=== PATIENT | male | born 1960 | race Caucasian/White ===

== ENCOUNTER 2019-12-14 16:25 | Inpatient (IN) ==
[2019-12-14] MEDS ORDERED: LIDOCAINE/EPINEPH/TETRACAINE 1 EA SYR EXT STA (16:42)
[2019-12-14] MEDS ORDERED: levETIRAcetam 1,000 MG in 0.9 % SODIUM CHLORIDE 100 ML IV STA (16:42)
[2019-12-14] MEDS ORDERED: SODIUM CHLORIDE 0.9% 1000ML 1,000 ML IV SCH (16:45)
[2019-12-14 16:52] LABS: Basophils # (auto) 0.06 K/uL (0-0.2); Basophils % (auto) 0.8 %; Eosinophils # (auto) 0.23 K/uL (0-0.5); Eosinophils % (auto) 2.9 %; Hematocrit (blood only) 44.8 % (42-52); Lymphocytes # (auto) 1.97 K/uL (1.2-3.4); Mean Corpuscular Hgb Conc 33.5 g/dL (32-36); Mean Corpuscular Volume 80.7 fL (80-100); Mean Platelet Volume 10.9 fL (7.4-10.4); Monocytes # (auto) 0.46 K/uL (0.11-0.59); Monocytes % (auto) 5.8 %; Neutrophils # (auto) 5.17 K/uL (1.4-6.5); Neutrophils % (auto) 65.5 %; Platelet Count 272 K/uL (130-400); RDW Coefficient of Variation 13.8 % (11.5-14.5); RDW Standard Deviation 40.5 fL (36.4-46.3); Red Blood Count 5.55 M/uL (4.7-6.1); White Blood Count 7.89 K/uL (4.8-10.8)
--- NOTE | 2019-12-14 16:53 | Emergency Department Note ---
Impression & Plan Generalized seizure, CHI (closed head injury), Laceration of eyebrow, right, Contusion of nose, Abrasion of face, Concussion ED Provider Note INFORMANT: Patient ED PROVIDER(S): Shiraz Goldberg MD CHIEF COMPLAINT: Seizure PLAN: Disposition: Admitted Condition: Good MEDICAL DECISION MAKING: Patient presented to the emergency department after a seizure. He had a obvious head injury. The patient underwent CT imaging of the head, facial bones and cervical spine which was negative. His cervical collar was discontinued. The patient had an unremarkable CBC and chemistry panel. The laceration was treated with let gel and repaired by Gael Apodaca PA-C, please see her note. The patient was treated with IV Keppra. He was hydrated. He was given oral Tylenol. He was observed and was still exhibiting some signs of confusion but that seemed to clear and he was answering questions more appropriately. I did discuss the case with Dr. Carlson of neurology who recommended twice daily 750 mg of Keppra. The patient was reassessed. 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 She noted that he was still not back to his normal baseline even though he was more alert and answering questions more appropriately. He has clear signs of a significant concussion. He has obvious significant external trauma. Thankfully he has no intracranial bleeding or fractures. The patient does live alone. Given his seizure and symptomatic concussion the patient and I discussed admission to the hospital for monitoring and he agreed. [facility]o [facility] Patient was evaluated in the ER for further management. Triage Nursing notes reviewed and agree them. Additional history obtained from patient's shuttle preparation supervisor Vital Signs: reviewed and remarkable for no significant abnormalities Differential diagnosis: Epilepsy, infection, hypoglycemia, electrolyte abnormalities, cardiac sources, intracerebral event, trauma, toxicologic, neurologic, syncope, as well as other pathologies. Diagnostics interpreted by me: ECG:.Rate: 70 Rhythm:Normal sinus [place]:Normal QRS:Normal ST segements:No elevation or depression Other:No PACs or PVCs Cardiac Monitoring: Cardiac monitoring ordered by me: The patient was placed on continuous cardiac monitoring and observed. It revealed a normal sinus rhythm at 68 beats per minute without ectopy or evidence of dysrhythmia. Imaging studies: CT scan of the head, cervical spine and facial bones was negative for intracranial pathology. No cervical injury noted. No facial bone fracture. There is soft tissue injury noted. I refer to the EMR for further details [facility] HPI: The patient is a 59 year old male who presents to the Emergency Room with complaints of seizure and head injury. This started over an hour ago and seizure action of it he has stopped. The patient was working at [employer] and apparently had a seizure. This was generalized. He did strike his face on the ground and suffered abrasions to the face and a Laceration to the right eyebrow with associated headache. He was placed in a cervical collar. The patient also notes the following associated symptoms, none. The patient has been given no medication for relieving factors. Current pain is rated as 2/10. Patient denies history of seizures however record review indicated that there was a previous Keppra prescription. Pt denies fevers, chills, diaphoresis, visual changes, neck pain, chest pain, breathing difficulties, nausea, vomiting, abdominal pain, back pain, melena, hematochezia, urinary symptoms, numbness, weakness, lymphadenopathy, rash, or other complaints. ROS: See above HPI for pertinent positives & negatives. A total of 10 systems reviewed and were otherwise negative. PAST MEDICAL HISTORY:See Below, seizure PAST SURGICAL HISTORY:See Below, FAMILY HISTORY:See Below SOCIAL HISTORY:See Below, employed at [employer] HOME MEDICATIONS:See Below ALLERGIES:See Below VITALS:See Below PHYSICAL EXAMINATION: GENERAL: Awake, tired-appearing, in no distress HENT: Normocephalic, abrasions to the face with a laceration to the right eyebrow. Oropharynx unremarkable. EYES: Normal conjunctiva. Sclera non-icteric. PERRLA. EOMI. NECK: Inspection normal. Non-tender. Cervical collar in place. No masses. RESPIRATORY: Clear to auscultation. No wheezes. No rales. Normal respiratory effort. CARDIAC: Normal rate. Normal rhythm. No murmurs. No rubs. Extremities warm and well perfused. Pulses equal. No JVD. GI: Soft, non-distended. No tenderness to palpation. No rebound or guarding. No masses. RECTAL: Deferred. MUSCULOSKELETAL: Atraumatic. Chest examination reveals no tenderness. The back is symmetrical on inspection without obvious abnormality. There is no CVA tenderness to palpation. No joint edema. LOWER EXTREMITIES: Calves are equal size bilaterally and non-tender. No edema. No discoloration. NEURO: Relatively normal sensorium except the patient is answering questions repetitively with the same answer. No sensory or motor deficits noted. SKIN: No rash or jaundice noted. Shiraz Goldberg MD Past Med/Surg History Social History Smoking Status: Never smoker Feels Safe at Home: Yes Allergies Allergies Allergy/AdvReac Type Severity Reaction Status Date / Time No Known Allergies Allergy Verified 12/14/19 17:07 Home Meds Home Medications Medication Instructions Recorded Confirmed levetiracetam 1,000 mg PO QPM 12/14/19 12/14/19 Results & Data (ED) Vital Signs Vital Signs - 24 hr 12/14/19 16:33 12/14/19 18:35 12/14/19 20:00 Temperature 36.7 C Temperature Source Oral Pulse Rate 110 H Pulse Rate [Left Finger] 70 73 Pulse Rhythm [Left Finger] Pulse Strength [Left Finger] Respiratory Rate 18 24 18 Respiratory Effort / Characteristics Non-Labored Spontaneous Normal for Patient Respiratory Depth Normal Blood Pressure 152/84 H Blood Pressure [Right Arm] 158/98 H 134/80 Blood Pressure Mean 106 Blood Pressure Mean [Right Arm] 118 98 Blood Pressure Position Lying Blood Pressure Position [Right Arm] Lying Pulse Oximetry 97 98 98 Oxygen Delivery Method Room Air Sepsis Recent Fever Within 48 Hours No Sepsis New/Unexplained Change in Mental Status No Sepsis Action Taken by Nursing No Action Required 12/14/19 21:35 12/14/19 22:55 12/14/19 23:34 Temperature Temperature Source Pulse Rate 68 Pulse Rate [Left Finger] 91 H 67 Pulse Rhythm [Left Finger] Regular Pulse Strength [Left Finger] Normal Respiratory Rate 18 18 18 Respiratory Effort / Characteristics Normal for Patient Normal for Patient Respiratory Depth Blood Pressure 118/71 Blood Pressure [Right Arm] 191/108 H 145/76 H Blood Pressure Mean Blood Pressure Mean [Right Arm] 135 99 Blood Pressure Position Blood Pressure Position [Right Arm] Lying Sitting Pulse Oximetry 100 97 97 Oxygen Delivery Method Room Air Room Air Room Air Sepsis Recent Fever Within 48 Hours Sepsis New/Unexplained Change in Mental Status Sepsis Action Taken by Nursing Laboratory Data Result diagrams: 12/14/19 16:20 12/14/19 16:20 Lab Results 10/26/20 10/26/20 10/26/20 Range/Units 16:20 16:20 16:20 WBC 7.89 (4.8-10.8) K/uL RBC 5.55 (4.7-6.1) M/uL Hgb 15.0 (14.0-18.0) g/dL Hct 44.8 (42-52) % MCV 80.7 (80-100) fL MCH 27.0 (25-34) pg MCHC 33.5 (32-36) g/dL RDW Std Deviation 40.5 (36.4-46.3) fL RDW Coeff of Ruben 13.8 (11.5-14.5) % Plt Count 272 (130-400) K/uL MPV 10.9 H (7.4-10.4) fL Immature Gran % (Auto) 0.0 % Neut % (Auto) 65.5 % Lymph % (Auto) 25.0 % [place] % (Auto) 5.8 % Eos % (Auto) 2.9 % Baso % (Auto) 0.8 % Neut # (Auto) 5.17 (1.4-6.5) K/uL Lymph # (Auto) 1.97 (1.2-3.4) K/uL [place] # (Auto) 0.46 (0.11-0.59) K/uL Eos # (Auto) 0.23 (0-0.5) K/uL Baso # (Auto) 0.06 (0-0.2) K/uL Immature Gran # (Auto) 0.00 (0.00-0.02) K/uL Sodium 138 (136-145) mmol/L Potassium 3.6 (3.5-5.1) mmol/L Chloride 102 (98-107) mmol/L Carbon Dioxide 21 (21-32) mmol/L Anion Gap 15.0 H (3-11) BUN 15 (7-18) mg/dl Creatinine 1.22 (0.6-1.4) mg/dl Est Cr Clr Drug Dosing 74.0 ml/min Est GFR ( Amer) 75.8 Est GFR (Non-Af Amer) 65.4 BUN/Creatinine Ratio 12.4 (10-20) Glucose 83 (70-99) mg/dl Calcium 9.1 (8.5-10.1) mg/dl Phosphorus 3.1 (2.5-4.9) mg/dl Magnesium 2.4 (1.8-2.4) mg/dl Total Bilirubin 0.4 (0.2-1) mg/dl AST 19 (15-37) U/L ALT 30 (12-78) U/L Alkaline Phosphatase 100 (45-117) U/L Total Creatine Kinase 215 (39-308) U/L Total Protein 7.9 (6.4-8.2) gm/dl Albumin 3.9 (3.4-5.0) gm/dl Globulin 4.0 (2.5-4.0) gm/dl Albumin/Globulin Ratio 1.0 (0.9-2) TSH 8.450 H (0.300-4.500) uIu/ml Urine Color Urine Appearance (Clear) Urine pH (4.5-7.5) Ur Specific [place] (1.000-1.030) Urine Protein (Negative) Urine Glucose (UA) (Negative) Urine Ketones (Negative) Urine Blood (Negative) Urine Nitrite (Negative) Urine Bilirubin (Negative) Urine Urobilinogen (Negative) Ur Leukocyte Esterase (Negative) 12/14/19 Range/Units 18:41 WBC (4.8-10.8) K/uL RBC (4.7-6.1) M/uL Hgb (14.0-18.0) g/dL Hct (42-52) % MCV (80-100) fL MCH (25-34) pg MCHC (32-36) g/dL RDW Std Deviation (36.4-46.3) fL RDW Coeff of Ruben (11.5-14.5) % Plt Count (130-400) K/uL MPV (7.4-10.4) fL Immature Gran % (Auto) % Neut % (Auto) % Lymph % (Auto) % [place] % (Auto) % Eos % (Auto) % Baso % (Auto) % Neut # (Auto) (1.4-6.5) K/uL Lymph # (Auto) (1.2-3.4) K/uL [place] # (Auto) (0.11-0.59) K/uL Eos # (Auto) (0-0.5) K/uL Baso # (Auto) (0-0.2) K/uL Immature Gran # (Auto) (0.00-0.02) K/uL Sodium (136-145) mmol/L Potassium (3.5-5.1) mmol/L Chloride (98-107) mmol/L Carbon Dioxide (21-32) mmol/L Anion Gap (3-11) BUN (7-18) mg/dl Creatinine (0.6-1.4) mg/dl Est Cr Clr Drug Dosing ml/min Est GFR ( Amer) Est GFR (Non-Af Amer) BUN/Creatinine Ratio (10-20) Glucose (70-99) mg/dl Calcium (8.5-10.1) mg/dl Phosphorus (2.5-4.9) mg/dl Magnesium (1.8-2.4) mg/dl Total Bilirubin (0.2-1) mg/dl AST (15-37) U/L ALT (12-78) U/L Alkaline Phosphatase (45-117) U/L Total Creatine Kinase (39-308) U/L Total Protein (6.4-8.2) gm/dl Albumin (3.4-5.0) gm/dl Globulin (2.5-4.0) gm/dl Albumin/Globulin Ratio (0.9-2) TSH (0.300-4.500) uIu/ml Urine Color Yellow Urine Appearance Clear (Clear) Urine pH 5.0 (4.5-7.5) Ur Specific [place] 1.012 (1.000-1.030) Urine Protein Negative (Negative) Urine Glucose (UA) Negative (Negative) Urine Ketones Negative (Negative) Urine Blood Negative (Negative) Urine Nitrite Negative (Negative) Urine Bilirubin Negative (Negative) Urine Urobilinogen Negative (Negative) Ur Leukocyte Esterase Negative (Negative) Administered Medications Discontinued Medications Acetaminophen (Acetaminophen 500 Mg Tab) 1,000 mg PO NOW STA Stop: 12/14/19 20:14 Last Admin: 12/14/19 20:24 Dose: 1,000 mg Documented by: [id number] Sodium Chloride (Nss 1000ml) 1,000 mls @ 999 mls/hr IV .Q1H1M NEGRO Stop: 12/14/19 17:45 Last Infusion: 12/14/19 18:15 Dose: 0 mls/hr Documented by: [id number] Admin: 12/14/19 17:14 Dose: 999 mls/hr Documented by: [id number] Levetiracetam 1,000 mg/ Sodium (Chloride) 100 mls @ 440 mls/hr IV NOW STA Stop: 12/14/19 16:55 Last Infusion: 12/14/19 18:15 Dose: 0 mls/hr Documented by: [id number] Admin: 12/14/19 17:58 Dose: 440 mls/hr Documented by: [id number] Ketorolac Tromethamine (Ketorolac Tromethamine 15 Mg/Ml Vial) 15 mg IV NOW STA Stop: 12/14/19 21:34 Last Admin: 12/14/19 21:50 Dose: Not Given Documented by: [id number] Lidocaine (Lidocaine/Epineph/Tetracaine 1 Ea Syr) 1 ea EXT NOW STA Stop: 12/14/19 16:43 Last Admin: 12/14/19 17:10 Dose: 1 ea Documented by: [id number] Lisinopril (Lisinopril 2.5 Mg Tab) 2.5 mg PO ONE STA Stop: 12/14/19 22:12 Last Admin: 12/14/19 22:54 Dose: 2.5 mg Documented by: [id number] Discharge Plan Visit Data Chief Complaint: Seizure Stated Complaint: seizure ED Provider: Shiraz Goldberg Discharge Problem: Generalized seizure, CHI (closed head injury), Laceration of eyebrow, right, Contusion of nose, Abrasion of face, Concussion Patient Disposition: Admitted As Inpatient Discharge Instructions Interventions: ED Discharge Assessment Last Done: 12/14/19 23:34 Forms Stand Alone Forms: [email or web address] Prescriptions Prescriptions: No Action levetiracetam 1,000 mg tablet 1,000 mg PO QPM RF: 0 Referrals Referrals: Duke Hernandez MD [Primary Care Provider] -
[2019-12-14 17:10] LABS: Albumin Level 3.9 gm/dl (3.4-5.0); BUN Creatinine Ratio 12.4 (10-20); Calcium 9.1 mg/dl (8.5-10.1); Est GFR (African American) 75.8; Est GFR (Non-African American) 65.4; Magnesium 2.4 mg/dl (1.8-2.4); Potassium 3.6 mmol/L (3.5-5.1)
--- NOTE | 2019-12-14 17:11 | CT Scan Report ---
CT head/brain wo con CLINICAL HISTORY: 59 years-old Male with seizure, CHI. Acute head injury with seizure TECHNIQUE: Multiple axial CT images of the head were obtained without contrast. A dose lowering tech nique was utilized adhering to the principles of ALARA. COMPARISON: CT maxillofacial same day, head CT 03/06/2012 FINDINGS: No acute intracranial hemorrhage, midline shift, intracranial mass, hydrocephalus, territorial ischem ia or abnormal extra-axial collection. Mild age-related involutional changes. Study is mildly motion degraded. Encephalomalacia of the left temporal lobe redemonstrated. Study is mildly motion degraded. Cerebral vascular calcifications. Serpiginous vessels noted within the extra-axial distribution kody cent to the right frontal lobe. Imaged, lateral to the right orbit, 4.5 x 1.5 cm. The calvarium is in tact. The paranasal sinuses, mastoid air cells, and middle ear cavities are clear. IMPRESSION: 1. No acute intracranial abnormality or calvarial fracture. 2. Soft tissue hematoma lateral to the right orbit, 4.5 x 1.5 cm. 3. 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 ACT 112: Negative or not required by law. The above report was generated using voice recognition software. It may contain grammatical, syntax o r spelling errors. Electronically signed by: Jose Ware M.D. 12/14/2019 5:10 PM
[2019-12-14 17:13] LABS: Bilirubin,Total 0.4 mg/dl (0.2-1); Phosphorus 3.1 mg/dl (2.5-4.9); Total Protein 7.9 gm/dl (6.4-8.2)
--- NOTE | 2019-12-14 17:29 | CT Scan Report ---
CT cervical spine wo con CT DOSE: 1083.13 mGy.cm CLINICAL HISTORY: 59 years-old Male with seizure. Acute neck trauma with seizure COMPARISON: CT cervical spine 10/19/2011 TECHNIQUE: Multiple axial CT images of the cervical spine were obtained without contrast. A dose low ering technique was utilized adhering to the principles of ALARA. FINDINGS: Moderate degeneration at C1-C2. Mild multilevel facet arthrosis and spondylitic spurring. No acute fr acture or subluxation. Mastoid air cells and middle ear cavities are clear. Mild multilevel foraminal narrowing is suggested. There is no prevertebral edema. Lung apices are clear without pneumothorax. IMPRESSION: No acute fracture or subluxation. ACT 112: Negative or not required by law. The above report was generated using voice recognition software. It may contain grammatical, syntax o r spelling errors. Electronically signed by: Jose Ware M.D. 12/14/2019 5:28 PM
--- NOTE | 2019-12-14 17:33 | CT Scan Report ---
CT facial bones wo con CLINICAL HISTORY: 59 years-old Male presenting with fall. Acute head, neck and face trauma status pos t fall COMPARISON STUDY: CT head and cervical spine studies of same day TECHNIQUE: High-resolution CT scan of the facial bones is performed. Images are reviewed in the axia l, sagittal, and coronal planes. IV contrast was not administered for this examination. A dose lower ing technique was utilized adhering to the principles of ALARA. CT DOSE: 620.05 mGy.cm FINDINGS: 4.5 x 1.5 cm soft tissue hematoma lateral to the right orbit. There are a few partially imaged puncta te radiodense foci noted along the skin surface of the left forehead, possibly reflective of calcific ations. Orbits and globes are unremarkable. Streak artifact from dental amalgam hardware. Unremarkabl e parotid glands. Mastoid air cells and middle ear cavities are clear. The zygomatic arches, maxillar y warner, pterygoid plates, imaged calvarium, nasal bone and mandible appear intact. No acute facial b one fracture identified. IMPRESSION: 1. No acute facial bone fracture. 2. Small to moderate hematoma lateral to the right orbit. ACT 112: Negative or not required by law. The above report was generated using voice recognition software. It may contain grammatical, syntax o r spelling errors. Electronically signed by: Jose Ware M.D. 12/14/2019 5:32 PM
[2019-12-14 18:57] LABS: Appearance Urine Clear (Clear); Bilirubin Urine Negative (Negative); Blood Urine Negative (Negative); Color Urine Yellow; Glucose Urine UA Negative (Negative); Ketones Urine Negative (Negative); Leukocyte Esterase Urine Negative (Negative); Nitrite Urine Negative (Negative); Protein Urine Negative (Negative); Specific Gravity Urine 1.012 (1.000-1.030); Urobilinogen Urine Negative (Negative)
--- NOTE | 2019-12-14 19:27 | Emergency Department Note ---
ED Visit Note EMERGENCY DEPARTMENT PROCEDURE NOTE: I was asked by Dr. Collier to repair the right lateral eyebrow wound of this 59-year-old male patient. Please refer to their dictation for the complete history, physical exam, and ED course. EMERGENCY DEPARTMENT COURSE: Let gel had been applied to the wound prior to my assessment of the patient. The patient's face was cleansed thoroughly with normal saline solution prior to procedure. The wound then was prepped with Betadine and draped with sterile towels. The 1 cm laceration was irrigated copiously using normal saline solution and direct pressure irrigation. The wound was repaired using numeral 2, 6-0 nylon sutures. Patient tolerated the procedure well. .
[2019-12-14] MEDS ORDERED: ACETAMINOPHEN 500 MG TAB PO STA (20:13)
[2019-12-14] MEDS ORDERED: KETOROLAC TROMETHAMINE 15 MG/ML VIAL IV STA (21:33)
[2019-12-14] MEDS ORDERED: lisinopril 2.5 MG TAB PO STA (22:11)
[2019-12-15] MEDS ORDERED: MoRPHine SULFATE 4 MG/ML 1 ML CARP\\VIAL IV PRN (00:24)
[2019-12-15] MEDS ORDERED: LORazepam 1 MG/2 ML VIAL IV PRN (00:24)
[2019-12-15] MEDS ORDERED: ACETAMINOPHEN 325 MG TAB PO PRN (00:24)
[2019-12-15] MEDS ORDERED: PROMETHAZINE HCL 12.5 MG in SODIUM CHLORIDE 0.9% 50 ML IV PRN (00:24)
[2019-12-15] MEDS ORDERED: LACTATED RINGER'S 1,000 ML IV ONE (00:45)
--- NOTE | 2019-12-15 05:43 | History & Physical Report ---
Date of Service December 14, 2019 LATE ENTRY Assessment & Plan (1) Breakthrough seizure: Possibly from suboptimal AED dosing regimen l Rule out brain tumor as precipitant HTN urgency secondary to illness Possibly chronic given LVH from 2013 2D echo history of PE status post Coumadin past tobacco/alcohol abuse OBS Medical telemetry Seizure precautions, Ativan as needed active seizure Brain MRI Re: Recurrent seizure Neurology consult Re: Breakthrough seizure (ER provider already in touch with Dr. Campos who recommends modified home Keppra dosing at 750 mg twice daily starting tomorrow a.m.) Initiate lisinopril if with persistent BP elevation DVT prophylaxis. SCDs RE right orbital hematoma Full code Text document was generated using [employer] voice recognition software. It may contain grammatical or spelling errors. Kindly contact undersigned for clarification of any documentation item in question. Admission and Anticipated Discharge Date Admission Date: December 14, 2019 History of Present Illness Patient Chief Complaint: Blacked out Primary Care Provider: Duke Hernandez MD History obtained from patient and records. Medical history significant for seizure disorder, history of PE status post Coumadin, past tobacco/alcohol abuse. Last confinement November 2012 for bilateral PE, unprovoked event. Patient Dilantin transitioned to Keppra for patient's seizure disorder due to potential drug interaction between former medication and Coumadin. 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 Patient hit the ground face down. Generalized tonic-clonic seizures witnessed by patient's coworker as per records. Patient brought to the ER for evaluation by EMS. Patient does not recall events from dizzy episode up until waking up in the ER. Patient complaining of painful right eye swelling without blurred vision. Patient denies chest pain, S OB, abdominal pain. Last seizure attack was about 6 or 7 years ago as per patient. Last outpatient [facility] neurology follow-up was in 2013. Patient claims to be compliant with home medications. Patient denies recent EtOH intake. IV Keppra administered at the ER. Patient still somewhat confused and slow to respond as per coworker as per ER provider. Medical History as above Surgical History : Appendectomy, shoulder surgery Family History : Cancer Personal/Social history : Past tobacco/alcohol abuse, [email or web address] employee Allergies Allergy/AdvReac Type Severity Reaction Status Date / Time No Known Allergies Allergy Verified 12/14/19 17:07 Home Medications Home Medications Medication Instructions Recorded Confirmed Type levetiracetam 1,000 mg PO QPM 12/14/19 12/14/19 History Past Med/Surg History Social History Smoking Status: Never smoker Hx Alcohol Use: No Hx Substance Use: No Preferred Language: Estonian Beliefs That Will Affect Care: None Current Living Situation: Alone Feels Safe at Home: Yes Assistive Devices: None Review of Systems Review of Systems: As per HPI, all 10 systems reviewed, all other ROS negative Physical Exam Physical Exam: GENERAL: Comfortable, no respiratory distress SKIN: Normal color, warm HEENT: Alopecia, right lateral orbital hematoma, no EOM entrapment, dry buccal mucosa, dried blood on the face NECK : Supple, no tenderness CHEST : CTA, no tenderness HEART : RRR, no obvious murmurs ABDOMEN: Some distention, nontender EXTREMITIES : No LE swelling/tenderness, no other conspicuous deformities noted NEUROLOGIC : Coherent, no facial asymmetry, no other gross focality Results & Data Results & Data ([facility]) Vital Signs (Past 12 Hours) Vital Signs Temp Pulse Pulse Resp BP BP BP 12/15/19 04:09 37.0 C 70 18 134/61 12/15/19 00:26 36.9 C 69 67 18 150/73 H 12/14/19 23:34 68 18 118/71 12/14/19 22:55 67 18 145/76 H 12/14/19 21:35 91 H 18 191/108 H 12/14/19 20:00 73 18 134/80 12/14/19 18:35 70 24 158/98 H Pulse Ox 12/15/19 04:09 94 12/15/19 00:26 97 12/14/19 23:34 97 12/14/19 22:55 97 12/14/19 21:35 100 12/14/19 20:00 98 12/14/19 18:35 98 Laboratory Results Laboratory Results WBC 7.89 K/uL (4.8-10.8) 12/14/19 16:20 RBC 5.55 M/uL (4.7-6.1) 12/14/19 16:20 Hgb 15.0 g/dL (14.0-18.0) 12/14/19 16:20 Hct 44.8 % (42-52) 12/14/19 16:20 MCV 80.7 fL (80-100) 12/14/19 16:20 MCH 27.0 pg (25-34) 12/14/19 16:20 MCHC 33.5 g/dL (32-36) 12/14/19 16:20 RDW Std Deviation 40.5 fL (36.4-46.3) 12/14/19 16:20 RDW Coeff of Ruben 13.8 % (11.5-14.5) 12/14/19 16:20 Plt Count 272 K/uL (130-400) 12/14/19 16:20 MPV 10.9 fL (7.4-10.4) H 12/14/19 16:20 Immature Gran % (Auto) 0.0 % 12/14/19 16:20 Neut % (Auto) 65.5 % 12/14/19 16:20 Lymph % (Auto) 25.0 % 12/14/19 16:20 [place] % (Auto) 5.8 % 12/14/19 16:20 Eos % (Auto) 2.9 % 12/14/19 16:20 Baso % (Auto) 0.8 % 12/14/19 16:20 Neut # (Auto) 5.17 K/uL (1.4-6.5) 12/14/19 16:20 Lymph # (Auto) 1.97 K/uL (1.2-3.4) 12/14/19 16:20 [place] # (Auto) 0.46 K/uL (0.11-0.59) 12/14/19 16:20 Eos # (Auto) 0.23 K/uL (0-0.5) 12/14/19 16:20 Baso # (Auto) 0.06 K/uL (0-0.2) 12/14/19 16:20 Immature Gran # (Auto) 0.00 K/uL (0.00-0.02) 12/14/19 16:20 Sodium 138 mmol/L (136-145) 12/14/19 16:20 Potassium 3.6 mmol/L (3.5-5.1) 12/14/19 16:20 Chloride 102 mmol/L (98-107) 12/14/19 16:20 Carbon Dioxide 21 mmol/L (21-32) 12/14/19 16:20 Anion Gap 15.0 (3-11) H 12/14/19 16:20 BUN 15 mg/dl (7-18) 12/14/19 16:20 Creatinine 1.22 mg/dl (0.6-1.4) 12/14/19 16:20 Est Cr Clr Drug Dosing 74.0 ml/min 12/14/19 16:20 Est GFR ( Amer) 75.8 12/14/19 16:20 Est GFR (Non-Af Amer) 65.4 12/14/19 16:20 BUN/Creatinine Ratio 12.4 (10-20) 12/14/19 16:20 Glucose 83 mg/dl (70-99) 12/14/19 16:20 Calcium 9.1 mg/dl (8.5-10.1) 12/14/19 16:20 Phosphorus 3.1 mg/dl (2.5-4.9) 12/14/19 16:20 Magnesium 2.4 mg/dl (1.8-2.4) 12/14/19 16:20 Total Bilirubin 0.4 mg/dl (0.2-1) 12/14/19 16:20 AST 19 U/L (15-37) 12/14/19 16:20 ALT 30 U/L (12-78) 12/14/19 16:20 Alkaline Phosphatase 100 U/L (45-117) 12/14/19 16:20 Total Creatine Kinase 215 U/L (39-308) 12/14/19 16:20 Total Protein 7.9 gm/dl (6.4-8.2) 12/14/19 16:20 Albumin 3.9 gm/dl (3.4-5.0) 12/14/19 16:20 Globulin 4.0 gm/dl (2.5-4.0) 12/14/19 16:20 Albumin/Globulin Ratio 1.0 (0.9-2) 12/14/19 16:20 TSH 8.450 uIu/ml (0.300-4.500) H 12/14/19 16:20 Urine Color Yellow 12/14/19 18:41 Urine Appearance Clear (Clear) 12/14/19 18:41 Urine pH 5.0 (4.5-7.5) 12/14/19 18:41 Ur Specific [place] 1.012 (1.000-1.030) 12/14/19 18:41 Urine Protein Negative (Negative) 12/14/19 18:41 Urine Glucose (UA) Negative (Negative) 12/14/19 18:41 Urine Ketones Negative (Negative) 12/14/19 18:41 Urine Blood Negative (Negative) 12/14/19 18:41 Urine Nitrite Negative (Negative) 12/14/19 18:41 Urine Bilirubin Negative (Negative) 12/14/19 18:41 Urine Urobilinogen Negative (Negative) 12/14/19 18:41 Ur Leukocyte Esterase Negative (Negative) 12/14/19 18:[address] head: 1. No acute intracranial abnormality or calvarial fracture. 2. Soft tissue hematoma lateral to the right orbit, 4.5 x 1.5 cm. 3. 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 Face CT: 1. No acute facial bone fracture. 2. Small to moderate hematoma lateral to the right orbit. Cervical spine CT: No acute fracture or subluxation. EKG as per my interpretation: Rate seventy, NSR, normal axis, no ischemia
[2019-12-15 06:28] LABS: Basophils # (auto) 0.03 K/uL (0-0.2); Basophils % (auto) 0.3 %; Eosinophils # (auto) 0.07 K/uL (0-0.5); Eosinophils % (auto) 0.7 %; Hematocrit (blood only) 43.5 % (42-52); Hemoglobin 14.2 g/dL (14.0-18.0); Immature Granulocytes # (auto) 0.01 K/uL (0.00-0.02); Immature Granulocytes % (auto) 0.1 %; Lymphocytes # (auto) 0.98 K/uL (1.2-3.4); Lymphocytes % (auto) 10.3 %; Mean Corpuscular Hemoglobin 26.3 pg (25-34); Mean Corpuscular Hgb Conc 32.6 g/dL (32-36); Mean Corpuscular Volume 80.6 fL (80-100); Mean Platelet Volume 10.8 fL (7.4-10.4); Monocytes # (auto) 0.57 K/uL (0.11-0.59); Neutrophils % (auto) 82.6 %; Platelet Count 226 K/uL (130-400); RDW Coefficient of Variation 14.1 % (11.5-14.5); RDW Standard Deviation 41.6 fL (36.4-46.3); White Blood Count 9.56 K/uL (4.8-10.8)
[2019-12-15 07:06] LABS: BUN Creatinine Ratio 12.2 (10-20); Calcium 8.2 mg/dl (8.5-10.1); Creatinine Clr Calc Pharmacy 86.6 ml/min; Est GFR (Non-African American) 93.2; Potassium 3.9 mmol/L (3.5-5.1)
[2019-12-15] MEDS: oxyCODONE HCL IR 5 MG TAB (IMMEDIATE RELEASE) PO PRN ×2 (07:25→15:09)
[2019-12-15] MEDS: levETIRAcetam 250 MG TAB PO SCH ×2 (07:25→20:32)
--- NOTE | 2019-12-15 09:15 | Hospitalist Progress Note ---
Date of Service December 15, 2019 Assessment & Plan (1) Breakthrough seizure: Possibly from suboptimal AED dosing regimen or possible noncompliance Rule out brain tumor as precipitant MRI obtained and unremarkable Admitted to medical telemetry Seizure precautions, Ativan as needed active seizure Neurology consult Re: Breakthrough seizure ER provider in touch with Dr. Campos who recommends modified home Keppra dosing at 750 mg twice daily starting this a.m Follow-up with neurology in 8 weeks HTN urgency secondary to illness Possibly chronic given LVH from 2012 2D echo Initiate lisinopril if with persistent BP elevation Current blood pressure well controlled, 124/66 History of PE status post Coumadin Past tobacco/alcohol abuse DVT prophylaxis. SCDs RE right orbital hematoma Full code Admission and Anticipated Discharge Date Admission Date: December 14, 2019 Subjective Patient is lying in bed, in no acute distress. Denies any fevers, chills, chest pain, shortness of breath. Denies any further loss of consciousness/seizure activity. He has significant ecchymosis over his right eye/eyelid. Difficulty opening eye however he is able to and denies any blurry vision. Review of Systems Review of Systems: All systems reviewed & are unremarkable except as noted in HPI & below Constitutional: no fever and no chills Respiratory: no cough and no dyspnea Cardiovascular: no chest pain and no palpitations Gastrointestinal: no abdominal pain, no nausea and no vomiting Neurologic: no seizure-like activity, no abnormal speech and no confusion Physical Exam Physical Exam: GENERAL: Middle-age male, lying in bed, comfortable, no respiratory distress HEENT: Alopecia, right lateral orbital ecchymosis /hematoma, no EOM entrapment NECK : Supple, no tenderness CHEST : CTA, no wheezing, rhonchi or crackles HEART : RRR, no obvious murmurs ABDOMEN: Some distention, nontender, nondistended, positive bowel sounds EXTREMITIES : No LE swelling/tenderness, moves extremities spontaneously SKIN: Normal color, warm NEUROLOGIC : Alert and oriented x3, no facial asymmetry, speech fluent, moves extremities spontaneously Results & Data Results & Data ([facility]) Vital Signs (Past 12 Hours) Vital Signs Temp Pulse Pulse Resp BP BP BP 12/15/19 08:00 64 12/15/19 07:00 37.1 C 63 18 122/61 12/15/19 04:09 37.0 C 70 18 134/61 12/15/19 00:26 36.9 C 69 67 18 150/73 H 12/14/19 23:34 68 18 118/71 12/14/19 22:55 67 18 145/76 H 12/14/19 21:35 91 H 18 191/108 H Pulse Ox 12/15/19 08:00 12/15/19 07:00 94 12/15/19 04:09 94 12/15/19 00:26 97 12/14/19 23:34 97 12/14/19 22:55 97 12/14/19 21:35 100 Laboratory Results 12/15/19 12/15/19 12/15/19 Range/Units 05:49 05:49 05:49 WBC 9.56 (4.8-10.8) K/uL RBC 5.40 (4.7-6.1) M/uL Hgb 14.2 (14.0-18.0) g/dL Hct 43.5 (42-52) % MCV 80.6 (80-100) fL MCH 26.3 (25-34) pg MCHC 32.6 (32-36) g/dL RDW Std Deviation 41.6 (36.4-46.3) fL RDW Coeff of Ruben 14.1 (11.5-14.5) % Plt Count 226 (130-400) K/uL MPV 10.8 H (7.4-10.4) fL Immature Gran % (Auto) 0.1 % Neut % (Auto) 82.6 % Lymph % (Auto) 10.3 % [place] % (Auto) 6.0 % Eos % (Auto) 0.7 % Baso % (Auto) 0.3 % Neut # (Auto) 7.90 H (1.4-6.5) K/uL Lymph # (Auto) 0.98 L (1.2-3.4) K/uL [place] # (Auto) 0.57 (0.11-0.59) K/uL Eos # (Auto) 0.07 (0-0.5) K/uL Baso # (Auto) 0.03 (0-0.2) K/uL Immature Gran # (Auto) 0.01 (0.00-0.02) K/uL Sodium 140 (136-145) mmol/L Potassium 3.9 (3.5-5.1) mmol/L Chloride 107 (98-107) mmol/L Carbon Dioxide 29 (21-32) mmol/L Anion Gap 4.0 (3-11) BUN 11 (7-18) mg/dl Creatinine 0.91 D (0.6-1.4) mg/dl Est Cr Clr Drug Dosing 86.6 ml/min Est GFR ( Amer) 108.0 Est GFR (Non-Af Amer) 93.2 BUN/Creatinine Ratio 12.2 (10-20) Glucose 106 H (70-99) mg/dl Calcium 8.2 L (8.5-10.1) mg/dl Phosphorus (2.5-4.9) mg/dl Magnesium (1.8-2.4) mg/dl Total Bilirubin (0.2-1) mg/dl AST (15-37) U/L ALT (12-78) U/L Alkaline Phosphatase (45-117) U/L Total Creatine Kinase (39-308) U/L Total Protein (6.4-8.2) gm/dl Albumin (3.4-5.0) gm/dl Globulin (2.5-4.0) gm/dl Albumin/Globulin Ratio (0.9-2) TSH (0.300-4.500) uIu/ml Urine Color Urine Appearance (Clear) Urine pH (4.5-7.5) Ur Specific [place] (1.000-1.030) Urine Protein (Negative) Urine Glucose (UA) (Negative) Urine Ketones (Negative) Urine Blood (Negative) Urine Nitrite (Negative) Urine Bilirubin (Negative) Urine Urobilinogen (Negative) Ur Leukocyte Esterase (Negative) Blood Type A Positive Antibody Screen NEGATIVE 12/14/19 12/14/19 12/14/19 Range/Units 18:41 16:20 16:20 WBC (4.8-10.8) K/uL RBC (4.7-6.1) M/uL Hgb (14.0-18.0) g/dL Hct (42-52) % MCV (80-100) fL MCH (25-34) pg MCHC (32-36) g/dL RDW Std Deviation (36.4-46.3) fL RDW Coeff of Ruben (11.5-14.5) % Plt Count (130-400) K/uL MPV (7.4-10.4) fL Immature Gran % (Auto) % Neut % (Auto) % Lymph % (Auto) % [place] % (Auto) % Eos % (Auto) % Baso % (Auto) % Neut # (Auto) (1.4-6.5) K/uL Lymph # (Auto) (1.2-3.4) K/uL [place] # (Auto) (0.11-0.59) K/uL Eos # (Auto) (0-0.5) K/uL Baso # (Auto) (0-0.2) K/uL Immature Gran # (Auto) (0.00-0.02) K/uL Sodium 138 (136-145) mmol/L Potassium 3.6 (3.5-5.1) mmol/L Chloride 102 (98-107) mmol/L Carbon Dioxide 21 (21-32) mmol/L Anion Gap 15.0 H (3-11) BUN 15 (7-18) mg/dl Creatinine 1.22 (0.6-1.4) mg/dl Est Cr Clr Drug Dosing 74.0 ml/min Est GFR ( Amer) 75.8 Est GFR (Non-Af Amer) 65.4 BUN/Creatinine Ratio 12.4 (10-20) Glucose 83 (70-99) mg/dl Calcium 9.1 (8.5-10.1) mg/dl Phosphorus 3.1 (2.5-4.9) mg/dl Magnesium 2.4 (1.8-2.4) mg/dl Total Bilirubin 0.4 (0.2-1) mg/dl AST 19 (15-37) U/L ALT 30 (12-78) U/L Alkaline Phosphatase 100 (45-117) U/L Total Creatine Kinase 215 (39-308) U/L Total Protein 7.9 (6.4-8.2) gm/dl Albumin 3.9 (3.4-5.0) gm/dl Globulin 4.0 (2.5-4.0) gm/dl Albumin/Globulin Ratio 1.0 (0.9-2) TSH 8.450 H (0.300-4.500) uIu/ml Urine Color Yellow Urine Appearance Clear (Clear) Urine pH 5.0 (4.5-7.5) Ur Specific [place] 1.012 (1.000-1.030) Urine Protein Negative (Negative) Urine Glucose (UA) Negative (Negative) Urine Ketones Negative (Negative) Urine Blood Negative (Negative) Urine Nitrite Negative (Negative) Urine Bilirubin Negative (Negative) Urine Urobilinogen Negative (Negative) Ur Leukocyte Esterase Negative (Negative) Blood Type Antibody Screen 12/14/19 Range/Units 16:20 WBC 7.89 (4.8-10.8) K/uL RBC 5.55 (4.7-6.1) M/uL Hgb 15.0 (14.0-18.0) g/dL Hct 44.8 (42-52) % MCV 80.7 (80-100) fL MCH 27.0 (25-34) pg MCHC 33.5 (32-36) g/dL RDW Std Deviation 40.5 (36.4-46.3) fL RDW Coeff of Ruben 13.8 (11.5-14.5) % Plt Count 272 (130-400) K/uL MPV 10.9 H (7.4-10.4) fL Immature Gran % (Auto) 0.0 % Neut % (Auto) 65.5 % Lymph % (Auto) 25.0 % [place] % (Auto) 5.8 % Eos % (Auto) 2.9 % Baso % (Auto) 0.8 % Neut # (Auto) 5.17 (1.4-6.5) K/uL Lymph # (Auto) 1.97 (1.2-3.4) K/uL [place] # (Auto) 0.46 (0.11-0.59) K/uL Eos # (Auto) 0.23 (0-0.5) K/uL Baso # (Auto) 0.06 (0-0.2) K/uL Immature Gran # (Auto) 0.00 (0.00-0.02) K/uL Sodium (136-145) mmol/L Potassium (3.5-5.1) mmol/L Chloride (98-107) mmol/L Carbon Dioxide (21-32) mmol/L Anion Gap (3-11) BUN (7-18) mg/dl Creatinine (0.6-1.4) mg/dl Est Cr Clr Drug Dosing ml/min Est GFR ( Amer) Est GFR (Non-Af Amer) BUN/Creatinine Ratio (10-20) Glucose (70-99) mg/dl Calcium (8.5-10.1) mg/dl Phosphorus (2.5-4.9) mg/dl Magnesium (1.8-2.4) mg/dl Total Bilirubin (0.2-1) mg/dl AST (15-37) U/L ALT (12-78) U/L Alkaline Phosphatase (45-117) U/L Total Creatine Kinase (39-308) U/L Total Protein (6.4-8.2) gm/dl Albumin (3.4-5.0) gm/dl Globulin (2.5-4.0) gm/dl Albumin/Globulin Ratio (0.9-2) TSH (0.300-4.500) uIu/ml Urine Color Urine Appearance (Clear) Urine pH (4.5-7.5) Ur Specific [place] (1.000-1.030) Urine Protein (Negative) Urine Glucose (UA) (Negative) Urine Ketones (Negative) Urine Blood (Negative) Urine Nitrite (Negative) Urine Bilirubin (Negative) Urine Urobilinogen (Negative) Ur Leukocyte Esterase (Negative) Blood Type Antibody Screen Medications Administered Current Inpatient Medications Acetaminophen (Acetaminophen 325 Mg Tab) 650 mg PO Q4H PRN PRN Reason: Pain or Fever Stop: 01/14/20 00:23 Lorazepam (Ativan) 1 mg in 2 mls @ 0.5 mls/min IV Q10M PRN PRN Reason: seizures Stop: 01/14/20 00:23 Promethazine HCl 12.5 mg/ (Sodium Chloride) 50.5 mls @ 202 mls/hr IV Q6H PRN PRN Reason: Nausea And Vomiting Stop: 01/14/20 00:23 Lactated Ringer's (Lr) 1,000 mls @ 80 mls/hr IV .[id number] ONE Stop: 12/15/19 13:14 Last Admin: 12/15/19 01:39 Dose: 80 mls/hr Documented by: Levetiracetam (Levetiracetam 250 Mg Tab) 750 mg PO BID NEGRO Stop: 01/14/20 08:59 Last Admin: 12/15/19 07:25 Dose: 750 mg Documented by: Lisinopril (Lisinopril 2.5 Mg Tab) 2.5 mg PO HS NEGRO Stop: 01/14/20 20:59 Morphine Sulfate (Morphine Sulfate 4 Mg/Ml 1 Ml Carp\Vial) 4 mg IV Q4H PRN PRN Reason: Pain Stop: 12/29/19 00:23 Oxycodone HCl (Oxycodone Hcl Ir 5 Mg Tab (Immediate Release)) 5 - 10 mg PO QID PRN PRN Reason: Pain Stop: 12/29/19 00:23 Last Admin: 12/15/19 07:25 Dose: 5 mg Documented by:
[2019-12-15] MEDS ORDERED: GADOBUTROL 65ML VIAL IV ONE (10:55)
--- NOTE | 2019-12-15 11:22 | Magnetic Resonance Report ---
MRI OF THE BRAIN WITHOUT AND WITH IV CONTRAST CLINICAL HISTORY: Head trauma. BREAKTHROUGH SEIZURE. COMPARISON STUDY: MRI the brain dated 12/19/2011, head CT dated 12/14/2019 TECHNIQUE: MRI of the brain was performed from the vertex to the skull base utilizing various T1 and T2 weighted sequences. Following the IV administration of 7.5 mL of Gadavist contrast, additional enh anced images were obtained. FINDINGS: Sagittal T1, axial diffusion, proton density and T2 weighted axial, coronal FLAIR, and pre and post a xial T1-weighted images were acquired. These were supplemented with post gadolinium coronal T1 weight ed images. No intra or extra-axial mass lesions are visualized. Axial diffusion-weighted images reveal no evidence of acute or subacute infarction. There is no evidence of ventricular dilatation. Proton density T2-weighted and FLAIR images reveal there is left temporal lobe encephalomalacia, jay jay lar to the preceding study. There are no other significant intraparenchymal signal abnormalities. There are no abnormal flow voids. There is no evidence of pathologic enhancement. There is right-sided scalp and periorbital edema. IMPRESSION: 1. No acute intracranial findings 2. No evidence of acute or subacute infarction 3. No evidence of intracranial mass 4. Stable left temporal lobe encephalomalacia and volume loss 5. Right scalp and periorbital edema ACT 112: Negative or not required by law. Electronically signed by: Red Cardenas M.D. 12/15/2019 11:21 AM
--- NOTE | 2019-12-15 13:16 | Consultation Report ---
DATE OF CONSULTATION: 12/15/2019 NEUROLOGY CONSULTATION NOTE CHIEF COMPLAINT: Seizure. HISTORY OF PRESENT ILLNESS: A 59-year-old male with a history of seizure, on Keppra 1000 mg daily. He presented to the Emergency Department last evening for breakthrough seizure. The patient was at work at [employer] last evening and was pushing a cart when he felt dizzy like he was going to pass out. The patient then fell to the ground and hit his face off the ground. He was witnessed to have a generalized tonic-clonic seizure witnessed by a coworker. He was brought to the Emergency Department for further evaluation. Upon arrival to the Emergency Department, he was complaining of pain above the right eye with some swelling. He denies chest pain, shortness of breath, abdominal pain. Last seizure was reported to be about 6-7 years ago per patient. He had not been seen by neurology since 2013. He reports compliance with his Keppra. He denies any recent alcohol intake. Keppra was given in the Emergency Department; however, he remained somewhat confused and slow to respond and therefore was admitted for observation. Neurology was consulted while in the Emergency Department and his dosing of Keppra was recommended to be adjusted to 750 mg twice daily. Neurology was consulted upon admission for further recommendations. ALLERGIES: No known drug allergies. HOME MEDICATIONS: Keppra 1000 mg nightly. PAST SURGICAL HISTORY: Appendectomy and shoulder surgery. FAMILY HISTORY: Positive for cancer. SOCIAL HISTORY: He is a prior tobacco user and previous alcohol user. He works at [employer]. REVIEW OF SYSTEMS: As per HPI, all other review of systems was negative. PHYSICAL EXAMINATION: VITAL SIGNS: Blood pressure 124/66, pulse is 58, respiratory rate is 16, temperature is 36.8 degrees Celsius, oxygen saturation is 96% on room air. GENERAL: He appears acutely ill with large right black eye or ecchymosis. HEENT: Right eye laceration and bruising with swelling NECK: Supple. LUNGS: Normal respiratory effort. CARDIOVASCULAR: Normal pulses. ABDOMEN: Nondistended. SKIN: No rash. PSYCHIATRIC: Normal mood. NEUROLOGIC: He is awake, alert and oriented to person, place and time. Attention is decreased. Knowledge is ok. Comprehension is intact. Speech is clear. Pupils are symmetric. Extraocular muscles intact. Facial sensation intact. No facial asymmetry. Intact hearing. Palate is symmetric. Tongue is midline with abrasion on right side. Gait deferred. No ataxia with [id number] testing, intact to light touch in terms of sensation. Muscle tone is normal, 5/5 throughout in terms of strength testing. DIAGNOSTIC TESTING AND LABORATORY VALUES: WBC 9.56, hemoglobin is 14.2, platelet count is 226. Sodium is 140, potassium 3.9, BUN is 11, creatinine 0.91, calcium 8.2, glucose 106. TSH is 8.45. Urinalysis was negative. MRI of the brain showed no acute intracranial findings. No evidence of acute or subacute infarct. No evidence of intracranial mass. Stable left temporal lobe encephalomalacia and volume loss right scalp and periorbital edema. ASSESSMENT AND PLAN: A 59-year-old male with a history of posttraumatic epilepsy s/p TBI and prior history of alcohol abuse admitted with a breakthrough seizure. Patient has prior history of compliance issues per chart review. He denies missed doses of Keppra, sleep deprivation, or recent illness. Denies EtOH. On examine he did bite his tongue on the right and has moderate facial trauma. MRI of the brain with and without contrast on admission was negative for an acute intracranial process. Recommend increasing dose of Keppra to 750 mg twice daily. Discussed driving restrictions in [place] that patient is not allowed to drive for 6 months after having a witnessed seizure. He expressed understanding. Recommend outpatient routine EEG as well as Neurology followup in 8 weeks. In regards to recent TBI / concussion would avoid narcotic medications for headache. Can use Naproxen as needed. Concussion may be contributing to gait unsteadiness would recommend PT/OT evaluation for rehab needs. MICHELLD
[2019-12-15] MEDS ORDERED: NAPROXEN 250 MG TAB PO PRN (17:45)
[2019-12-15] MEDS ORDERED: lisinopril 2.5 MG TAB PO SCH (21:00)
--- NOTE | 2019-12-15 22:21 | Electrocardiogram Report ---
Test Reason : Blood Pressure : / mmHG Vent. Rate : 070 BPM Atrial Rate : 070 BPM P-R Int : 160 ms QRS Dur : 092 ms QT Int : 408 ms P-R-T Axes : 036 050 031 degrees QTc Int : 440 ms Normal sinus rhythm Normal ECG When compared with ECG of 19-NOV-2012 07:02, No significant change was found Confirmed by Lambert Oconnell ([id number]) on 12/15/2019 10:20:57 PM Referred By: REFERRED SELF Confirmed By:Lambert Oconnell
[2019-12-16] MEDS ORDERED: LACTATED RINGER'S 1,000 ML IV ONE (05:07)
[2019-12-16] MEDS: levETIRAcetam 250 MG TAB PO SCH ×2 (08:08→20:00)
[2019-12-16 08:21] LABS: Hematocrit (blood only) 41.6 % (42-52); Hemoglobin 13.4 g/dL (14.0-18.0); Mean Corpuscular Hemoglobin 26.4 pg (25-34); Mean Corpuscular Hgb Conc 32.2 g/dL (32-36); Mean Corpuscular Volume 81.9 fL (80-100); Mean Platelet Volume 11.1 fL (7.4-10.4); Platelet Count 201 K/uL (130-400); RDW Standard Deviation 42.1 fL (36.4-46.3); Red Blood Count 5.08 M/uL (4.7-6.1); White Blood Count 6.38 K/uL (4.8-10.8)
[2019-12-16 08:48] LABS: Calcium 8.5 mg/dl (8.5-10.1); Creatinine Clr Calc Pharmacy 87.6 ml/min; Est GFR (African American) 109.5; Est GFR (Non-African American) 94.5; Potassium 3.9 mmol/L (3.5-5.1)
--- NOTE | 2019-12-16 18:18 | Hospitalist Progress Note ---
Date of Service December 16, 2019 Assessment & Plan (1) Breakthrough seizure: Presented with breakthrough seizure, Concern for medication compliance/Keppra at home Appreciate input from neurology, Keppra dose increased 750 mg twice daily Patient has been asymptomatic for since admission Will be discharged home tomorrow, follow-up with neurology Dr. Carlson in 8 weeks MRI obtained and unremarkable Right eyelid ecchymosis/right orbital hematoma: Conservative approach, avoid anticoagulation/antiplatelet HTN urgency secondary to illness Blood pressure well controlled now DVT prophylaxis. SCDs RE right orbital hematoma Full code Patient will be discharged home tomorrow, if no seizure episode overnight Patient is notified that he should not be driving for next 6 months/DMV form filled out by prior hospitalist Dr. Esquivel Admission and Anticipated Discharge Date Admission Date: December 15, 2019 Subjective denies of any headache No further seizure activity, have ecchymosis around right eye, No weakness or paresthesia no fever or chills Review of Systems Review of Systems: All systems reviewed & are unremarkable except as noted in HPI & below Physical Exam Constitutional: WD/WN, vitals as above Eyes: + eyelid abnormality (Ecchymosis on right eyelid) and + conjunctival abnormality (Injected right conjunctiva) Right eye injected, large surrounding ecchymosis involving the right orbit ENMT: Nose: + external nose abnormality (Noted blood on nasal canal, PTK on nasal bridge) Neck: trachea midline, no thyromegaly Respiratory: normal respiratory effort, lungs clear to auscultation Cardiovascular: RRR, no murmur, no edema Gastrointestinal (Abdomen): Percussion/Palpation: abdomen soft; abdomen nontender Musculoskeletal: no cyanosis or clubbing, extremities motor strength 5/5 Neurologic: PERRL, EOMI, accommodation nl, no face palsy, no dysarthria Psychiatric: A+Ox3, euthymic affect Results & Data Results & Data ([facility]) Vital Signs (Past 12 Hours) Vital Signs Temp Pulse Resp BP Pulse Ox 12/16/19 15:10 36.7 C 74 20 107/60 97 12/16/19 11:13 36.8 C 68 18 124/74 96 12/16/19 07:27 36.6 C 67 18 130/69 95
[2019-12-17] MEDS: levETIRAcetam 250 MG TAB PO SCH (07:50)
[2019-12-17 08:38] VITALS: PULSE 58; TEMP 97.3; O2SAT 99
[2019-12-17 12:45] VITALS: BP 91/36
--- NOTE | 2019-12-17 13:16 | Discharge Summary ---
Date of Service December 17, 2019 Admission HPI Per Admitting Provider History obtained from patient and records. Medical history significant for seizure disorder, history of PE status post Coumadin, past tobacco/alcohol abuse. Last confinement November 2012 for bilateral PE, unprovoked event. Patient Dilantin transitioned to Keppra for patient's seizure disorder due to potential drug interaction between former medication and Coumadin. 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 Patient hit the ground face down. Generalized tonic-clonic seizures witnessed by patient's coworker as per records. Patient brought to the ER for evaluation by EMS. Patient does not recall events from dizzy episode up until waking up in the ER. Patient complaining of painful right eye swelling without blurred vision. Patient denies chest pain, S OB, abdominal pain. Last seizure attack was about 6 or 7 years ago as per patient. Last outpatient [facility] neurology follow-up was in 2013. Patient claims to be compliant with home medications. Patient denies recent EtOH intake. IV Keppra administered at the ER. Patient still somewhat confused and slow to respond as per coworker as per ER provider. Medical History as above Surgical History : Appendectomy, shoulder surgery Family History : Cancer Personal/Social history : Past tobacco/alcohol abuse, [employer] employee Principal Diagnosis Seizure episode Fall due to seizure right orbital hematoma Concussion Discharge Exam Constitutional WD/WN, vitals as above Eyes + eyelid abnormality (Ecchymosis on right eyelid) and + conjunctival abnormality (Injected right conjunctiva) ENMT Nose: + external nose abnormality (Noted blood on nasal canal, PTK on nasal bridge) Neck trachea midline, no thyromegaly Respiratory normal respiratory effort, lungs clear to auscultation Cardiovascular RRR, no murmur, no edema Gastrointestinal (Abdomen) Percussion/Palpation: abdomen soft; abdomen nontender Musculoskeletal no cyanosis or clubbing, extremities motor strength 5/5 Neurologic PERRL, EOMI, accommodation nl, no face palsy, no dysarthria Psychiatric A+Ox3, euthymic affect Discharge Data Allergies Allergy/AdvReac Type Severity Reaction Status Date / Time No Known Allergies Allergy Verified 12/14/19 17:07 Consultations 12/14/19 20:14 ED Decision to Admit Stat 12/15/19 00:24 Consult Neurology Routine Ordered Studies 12/14/19 16:42 CT cervical spine wo con Stat CT head/brain wo con Stat 12/14/19 16:57 CT facial bones wo con Stat 12/15/19 00:24 MR brain seizure wo/w con Routine Hospital Course (1) Breakthrough seizure: Presented with breakthrough seizure, Concern for medication compliance/Keppra at home Appreciate input from neurology, Keppra dose increased 750 mg twice daily Patient has been asymptomatic for since admission Will be discharged home tomorrow, follow-up with neurology Dr. Carlson in 8 weeks MRI obtained and unremarkable Right eyelid ecchymosis/right orbital hematoma: Conservative approach, avoid anticoagulation/antiplatelet HTN urgency secondary to illness Blood pressure well controlled now DVT prophylaxis. SCDs RE right orbital hematoma Full code Patient is discharged home today, Patient is notified that he should not be driving for next 6 months/DMV form filled out by prior hospitalist Dr. Esquivel Total Time Total Time Spent Total Time Spent (In Minutes): 30 mins Total Time Includes: Discharge Planning and Medication Reconciliation Discharge Plan Discharge Items Patient Disposition: Home - Self-Care Reason For Visit: CONCUSSION Discharge Diagnosis: Seizure episode Fall due to seizure right orbital hematoma Concussion Activity: Resume your previous activity Activity Comment: Do not drive for next 6 months, Non-emergency contact: Primary Care Provider and Neurologist Call non-emergency contact if: you have any medication questions Follow-up/Referrals: Duke Hernandez MD [Primary Care Provider] - (Date & Time 12/21/2019 12:00 PM Provider Duke Hernandez MD Department General Internal Medicine [facility] ) Jefferson Campos DO [Physician] - (In 6-8 weeks) Diet: Regular Addtl Attending Provider Instructions: Do not drive for next 6 months, DMV notified You need to be seizure-free for at least 6 months while on medication, and evaluated by neurology before your rental car [employer] driver's license is reinstituted Very important to take medications as instructed Discharged on a higher dose of Keppra 750 mg 1 tablet twice daily Follow-up with neurology Dr. Carlson in 6-8 weeks Pending Studies at Discharge: No Stand-Alone Forms: My [email or web address], Smoking Cessation Medications and DC Order Prescriptions: New levetiracetam [Keppra] 750 mg tablet 750 mg PO BID Qty: 60 RF: 3 Discontinued levetiracetam 1,000 mg tablet 1,000 mg PO QPM RF: 0 Discharge Orders: Discharge Order (Routine); Ordered 12/17/19 Ordered By: Margot Macias Admission Data Admit Date/Time: 12/15/19 19:28 Attending Provider: Margot Macias Admit Provider: Alfredo Tai Primary Care Provider: Duke Hernandez Other Providers: Alfredo Esquivel ; Alfredo Tai ; Jefferson Campos Other Interventions: Discharge Summary Assessment (RN) Last Done: 12/17/19 12:43
== END 2019-12-17 12:55 | disposition home or self-care (01) | DRG 101 ==
LOC: 2W 16:25 → ED 16:25 → 2W 23:34 → SUATTDRO 12-15 19:28